=== PATIENT | male | born 1965 | race Hispanic/Latino ===

== ENCOUNTER 2016-09-25 19:53 | Emergency (ER) | payer OTHER ==
[2016-09-25] MEDS ORDERED: METFORMIN500 MG PO (22:47)
[2016-09-25] MEDS ORDERED: LISINOPRIL10 MG PO (22:48)
[2016-09-25] MEDS ORDERED: HYDROCHLOROT12.5 MG PO (22:49)
[2016-09-25] MEDS ORDERED: ATORVASTATIN CA40 MG PO (22:49)
[2016-09-26 01:53] LABS: HEMATOCRIT 42.7 % (39.0-50.0); HEMOGLOBIN 14.3 g/dl (14.0-18.0); IMMATURE GRANULOCYTES 0.3 % (0.0-1.0); MEAN CELL VOLUME 92.6 fL CALC (80.0-100.0); MEAN CORPUSCULAR HGB CONC 33.5 g/L CALC (32.0-36.0); NEUT# 7.51 thou/uL (1.82-7.42); RED BLOOD COUNT 4.61 mill/uL (4.70-6.10); RED CELL DISTRI WIDTH 12.9 % (11.5-15.5)
[2016-09-26 02:11] LABS: ALBUMIN 4.3 g/dL (3.2-5.0); ALKALINE PHOSPHATASE 60 u/l (38-126); ANION GAP 16 (6-22 (CALC)); BILIRUBIN, TOTAL 1.2 mg/dL (0.0-1.4); BUN 14 mg/dL (9-20); BUN/CREATININE RATIO 22 (12-20 (CALC)); CALCIUM 8.9 mg/dL (8.4-10.2); CARBON DIOXIDE 27 mmol/l (22-30); CHLORIDE 100 mmol/l (95-108); CREATININE 0.6 mg/dL (0.7-1.3); GFR > 60 ML/MIN (>=60 (CALC)); GFR FOR AFR.AMER. > 60 ML/MIN (>=60 (CALC)); GLUCOSE 128 mg/dL (75-110); POTASSIUM 4.1 mmol/l (3.5-5.1); SGOT/AST 37 u/l (17-59); SGPT/ALT 68 u/l (21-72); SODIUM 139 mmol/l (137-146); TOTAL PROTEIN 7.3 g/dL (6.3-8.2)
[2016-09-26] MEDS ORDERED: BACTRIM DS1 TAB PO (02:37)
[2016-09-26] MEDS ORDERED: LORTAB 10-325 M1 TAB PO (02:37)
[2016-09-26 03:30] VITALS: BP 128/79
== END 2016-09-26 04:00 | disposition home or self-care (01) | DRG 550 ==
LOC: ED 19:53
PROVIDERS: Emergency Medicine
PROC: 0S9D3ZX Drainage of Left Knee Joint, Percutaneous Approach, Diagnostic (ICD-10-PCS; principal; 2016-09-26)
DX: M00.9 Pyogenic arthritis, unspecified (principal); M25.462 Effusion, left knee; R50.9 Fever, unspecified

== ENCOUNTER 2017-07-14 15:01 | Emergency (ER) | payer OTHER ==
[~2017-07-14 15:01] MED LIST: ATORVASTATIN CA40 MG PO; BACTRIM DS1 TAB PO; HYDROCHLOROT12.5 MG PO; LISINOPRIL10 MG PO; LORTAB 10-325 M1 TAB PO; METFORMIN500 MG PO
[2017-07-14] MEDS ORDERED: LORTAB 5/3255 MG PO (15:12)
[2017-07-14] MEDS ORDERED: PENICILLN VK500 MG PO (15:12)
[2017-07-14 15:20] VITALS: BP 159/70
== END 2017-07-14 15:20 | disposition home or self-care (01) | DRG 159 ==
LOC: ED 15:01
DX: K08.89 Other specified disorders of teeth and supporting structures (principal); R50.9 Fever, unspecified

== ENCOUNTER 2018-06-29 20:15 | Emergency (ER) | payer SELFPAY ==
[~2018-06-29] VITALS: Ht 162.6 cm; Wt 99.2 kg
[~2018-06-29 20:15] MED LIST changes: +LORTAB 5/3255 MG PO; +PENICILLN VK500 MG PO
[2018-06-29] MEDS ORDERED: PREDNISONE50 MG PO (20:37)
[2018-06-29] MEDS ORDERED: TRAMADOL HCL50 MG PO (20:37)
[2018-06-29] MEDS ORDERED: BACTRIM DS1 TAB PO (20:37)
[2018-06-29 20:58] VITALS: BP 143/92
== END 2018-06-29 21:05 | disposition home or self-care (01) | DRG 558 ==
LOC: ED 20:15
DX: M70.21 Olecranon bursitis, right elbow (principal); E11.9 Type 2 diabetes mellitus without complications; I10 Essential (primary) hypertension